=== PATIENT | female | born 1995 | race African-American/Black ===

== ENCOUNTER 2020-05-27 11:55 | Emergency (ER) | payer SELFPAY ==
[~2020-05-27] VITALS: Ht 162.6 cm; Wt 71.1 kg
[2020-05-27 12:55] LABS: ALBUMIN 3.5 g/dL (3.4-5.0); ANION GAP 7 mmol/L (5-15); CALCIUM 8.2 mg/dL (8.5-10.1); CHLORIDE 109 mmol/L (98-107)
[2020-05-27 12:55] LABS: MICROSCOPIC INDICATED
[2020-05-27 12:56] LABS: CREATININE 0.59 mg/dL (0.55-1.02)
[2020-05-27 13:29] VITALS: BP 112/78
== END 2020-05-27 13:42 | disposition home or self-care (01) ==
LOC: ED 13:37
DX: N30.01 Acute cystitis with hematuria (principal); R10.9 Unspecified abdominal pain
CPT/HCPCS: 36415; 80048; 81001; 82040; 87086; 99283

== ENCOUNTER 2020-09-12 12:42 | Emergency (ER) | payer SELFPAY ==
[~2020-09-12] VITALS: Ht 162.6 cm; Wt 72.8 kg
[2020-09-12 12:51] VITALS: BP 108/73
--- NOTE | 2020-09-12 12:59 | NUR ---
farrah is evaluating in triage. will d/c from here.
[2020-09-12] MEDS ORDERED: DEXAMETHASONE 4 MG TABLET PO ONE (13:00)
[2020-09-12] MEDS ORDERED: DEXAMETHASONE 4 MG/ML, 5ML ONE (13:02)
== END 2020-09-12 13:08 | disposition home or self-care (01) ==
LOC: ED 12:50
DX: J02.9 Acute pharyngitis, unspecified (principal); R50.9 Fever, unspecified
CPT/HCPCS: 99283